=== PATIENT | female | born 1960 | race Caucasian/White ===

== ENCOUNTER 2022-11-29 10:35 | Day surgery (SDC) | payer OTHER ==
[2022-11-23 17:23] VITALS: BMI 30.1
[2022-11-29] MEDS ORDERED: PROPOFOL 20 ML ONE ×2 (11:20)
[2022-11-29] MEDS ORDERED: MIDAZOLAM HCL 2 MG/2 ML SINGLE DOSE VIAL ONE (13:20)
[2022-11-29] MEDS ORDERED: FENTANYL CITRATE/PF 50 MCG/ML VIAL ONE (13:20)
[2022-11-29] MEDS ORDERED: ROPIVACAINE HCL 0.5% 30ML VIAL ONE (13:21)
[2022-11-29] MEDS ORDERED: KETOROLAC TROMETHAMINE 30 MG/1 ML VIAL ONE (13:48)
[2022-11-29] MEDS ORDERED: ONDANSETRON 4 MG/2 ML VIAL IVPUSH PRN (14:05)
[2022-11-29] MEDS ORDERED: oxyCODONE HCL 5 MG TABLET PO PRN (14:05)
[2022-11-29] MEDS ORDERED: LACTATED RINGERS SOLUTION 1,000 ML IV SCH (14:15)
[2022-11-29 14:56] VITALS: PULSE 77; RESP 18; TEMP 97.8
[2022-11-29 15:37] VITALS: BP 124/71
== END 2022-11-29 15:30 | disposition home or self-care (01) ==
LOC: FASU 10:35
PROVIDERS: ATTEND Orthopaedic Surgery Hand Surgery
PROC: 0LN60ZZ Release Left Lower Arm and Wrist Tendon, Open Approach (ICD-10-PCS; 2022-11-29)
PROC: 0PSJ04Z Reposition Left Radius with Internal Fixation Device, Open Approach (ICD-10-PCS; principal; 2022-11-29 13:17)
DX: S52.572A Other intraarticular fracture of lower end of left radius, initial encounter for closed fracture (principal); X58.XXXA Exposure to other specified factors, initial encounter; Y93.9 Activity, unspecified; Y92.9 Unspecified place or not applicable
CPT/HCPCS: 25290; 25609; C1713; 73110-TC-LT-FY; 94760